=== PATIENT | male | born 1955 | race Caucasian/White ===

== ENCOUNTER 2017-07-03 14:05 | Emergency (ER) | payer OTHER ==
[~2017-07-03] VITALS: Ht 180.3 cm; Wt 98.2 kg
[2017-07-03 14:12] VITALS: BP 198/128; PULSE 81; TEMP 36.7; O2SAT 95; Ht 180.3 cm; Wt 98.2 kg
--- NOTE | 2017-07-03 14:42 | DIAGNOSTIC IMAGING REPORT ---
L HAND MIN 3 VIEWS ROUTINE CLINICAL HISTORY: L hand pain trauma COMPARISON: None. DISCUSSION: Oblique nondisplaced fracture distal aspect second metacarpal. No evidence of dislocation. Localized soft tissue edema. Mild degenerative change of the radiocarpal articulations. IMPRESSION: Oblique fracture distal aspect second metacarpal. Soft tissue edema. The above report was generated using voice recognition software. It may contain grammatical, syntax or spelling errors. Electronically signed by: Rodolfo Quintana M.D. 07/03/2017 2:41 PM Dictated Date/Time: 07/03/2017 2:37 PM
[2017-07-03] MEDS ORDERED: CEPH500C PO (15:00)
[2017-07-03] MEDS ORDERED: CEPHALEXIN MONOHYDRATE 250 MG CAP PO ONE (15:00)
--- NOTE | 2017-07-03 15:09 | EMERGENCY ROOM VISIT NOTE ---
History First contact with patient: 14:12 Chief Complaint: HAND PAIN/INJURY Stated Complaint: HURT HAND History of Present Illness The patient is a 61 year old male who presents to the Emergency Room with complaints of a left hand injury that happened 2 days ago. The patient was attempting to replace a garage door torsion spring when the bracket let loose and hit his hand. The patient reports that he did suffer a puncture wound. It did bleed extensively. The patient reports mild swelling and persistent pain of the hand. He has been continuing to work with a hand, but reports that at the end of the day, it is rather painful. He denies any paresthesias or numbness of the hand or fingers. Tetanus immunization is up-to-date. The patient is ambidextrous, but does seem to use his left hand or. He rates his discomfort a 6 out of 10. Review of Systems 10 system review was performed and was negative except for pertinent positives and negatives as indicated in history of present illness Past Medical/Surgical History Medical Problems: (1) No significant past medical history Surgical Problems: (1) No history of previous surgery Family History Unremarkable Social History Smoking Status: Never Smoker Alcohol Use: occasionally Marital Status: single Housing Status: lives with family Occupation Status: employed Current/Historical Medications Scheduled Cephalexin Monohydrate (Keflex), 500 MG PO QID Physical Exam Vital Signs Date Time Temp Pulse Resp B/P (MAP) Pulse Ox O2 Delivery O2 Flow Rate FiO2 16/18 14:12 36.7 81 18 198/128 95 Room Air Physical Exam CONSTITUTIONAL: Healthy and well nourished. Alert and oriented X 3 with positive affect. She does not appear in any acute distress. HEENT: Normocephalic, atraumatic. Pupils equal, round and reactive. NECK: Full active range of motion without discomfort. RESPIRATORY: Clear to auscultation bilaterally with no wheezing, crackles, rhonchi or stridor. CARDIOVASCULAR: Regular rate and rhythm with no murmurs, rubs or gallops. MUSCULOSKELETAL: Examination of the left and shows notable edema. The patient does have a small puncture wound near the dorsal and distal aspect of the second metacarpal. There is no significant peripheral erythema or overriding erythema of the remaining dorsal hand region. Capillary refill of the fingers is less than 2 seconds. No tenderness to palpation about the wrist. INTEGUMENTARY: No rash or other significant dermatologic conditions noted. NEUROLOGIC: Left hand and fingers are sensory intact. Medical Decision & Procedures ER Provider Diagnostic Interpretation: My interpretation of left hand x-rays shows a nondisplaced fracture of the distal second metacarpal. Radiologist report is as follows: L HAND MIN 3 VIEWS ROUTINE CLINICAL HISTORY: L hand pain trauma COMPARISON: None. DISCUSSION: Oblique nondisplaced fracture distal aspect second metacarpal. No evidence of dislocation. Localized soft tissue edema. Mild degenerative change of the radiocarpal articulations. IMPRESSION: Oblique fracture distal aspect second metacarpal. Soft tissue edema. ED Course Patient history and physical exam were performed. Nurse's notes were reviewed. Vital signs were reviewed and were normal. The patient refused any analgesics while in the emergency department. X-rays of the left ankle confirms a fracture of the distal second metacarpal. I expressed my concern for puncture wound and risk for infection, although he does not appear infected at this time. The patient was administered Keflex 500 mg orally. He will be provided a prescription for Keflex. The patient refused any prescription analgesics. A volar Ortho-Glass splint was applied. The patient was instructed to follow-up with [facility] for further reevaluation and management. Ibuprofen and Tylenol as needed for pain. The patient was happy with plan of care, voiced understanding of all discharge instructions, and rated his pain a 4 out of 10 at the time of discharge. Medical Decision [place] Drug Monitoring Program Search Results: patient reviewed within database, no issues identified Medication Reconcilliation Current Medication List: was personally reviewed by ar Blood Pressure Screening Patient's blood pressure: Normal blood pressure Impression Primary Impression: Fracture of second metacarpal bone of left hand Additional Impression: Puncture wound of left hand Departure Information Prescriptions Cephalexin Monohydrate (Keflex) 500 Mg Cap 500 MG PO QID for 7 Days, #28 CAP Prov: Lavell Sanon PA 07/03/17 Patient Instructions My [facility] Problem Qualifiers Primary Impression: Fracture of second metacarpal bone of left hand Encounter type: initial encounter Fracture type: open Metacarpal location: shaft Fracture alignment: nondisplaced Qualified Codes: S62.351B - Nondisplaced fracture of shaft of second metacarpal bone, left hand, initial encounter for open fracture Additional Impression: Puncture wound of left hand Encounter type: initial encounter Foreign body presence: without foreign body Qualified Codes: S61.432A - Puncture wound without foreign body of left hand, initial encounter
== END 2017-07-03 15:16 | disposition home or self-care (01) ==
LOC: C.EDB 14:07 → C.EDD 15:16
DX: S62.351B Nondisplaced fracture of shaft of second metacarpal bone, left hand, initial encounter for open fracture (principal); S61.432A Puncture wound without foreign body of left hand, initial encounter; W22.8XXA Striking against or struck by other objects, initial encounter; Y93.89 Activity, other specified; Y99.8 Other external cause status